=== PATIENT | male | born 1990 | race Caucasian/White ===

== ENCOUNTER 2025-03-05 22:55 | Emergency (ER) | payer SELFPAY ==
[2025-03-05 23:02] VITALS: BP 147/103; PULSE 105; RESP 16; TEMP 36.3; O2SAT 100
--- OUTSIDE RECORDS SUMMARY | 2025-03-06 07:26 | XMS_ITS | Patient Health Record ---
Author Organization [facility] Address [address] [place] [address] Care Team Providers Care Brick Mason Name Role Phone Grady Sheehan Primary Care Provider [phone] Shaun Lyles Unavailable [phone] Adam Smith Unavailable [phone] Elizabeth Sadler Unavailable Eileen Castaneda Unavailable [phone] Iva No Unavailable [phone] Allergies Allergen (clinical drug ingredient) Drug/Non Drug Allergy documented on EMR Reaction Allergy Type Onset Date Status Penicillin Unknown Drug Allergy Active Results Component Value Reference Range Notes 12 Panel Urine Drug Screen Reviewed date:11/19/2024 02:13:55 PM Interpretation: Performing Lab: Notes/Report: THC neg BRENDA neg MOP (OPI) neg AMP neg MET neg BAR neg BZO neg MDMA neg MTD neg OXY neg PCP neg BUP POS 12 Panel Urine Drug Screen Reviewed date:01/04/2025 09:38:34 AM Interpretation: Performing Lab: Notes/Report: THC POS BRENDA neg MOP (OPI) neg AMP neg MET neg BAR neg BZO neg MDMA neg MTD neg OXY neg PCP neg BUP POS Medication Assisted Treatmen t (MAT) Buprenorphine, Norbuprenorphine, and Naloxone MS Confirmation, Urine Reviewed date:11/25/2024 04:15:22 PM Interpretation: Performing Lab:[facility], [address] [facility], Phone - [phone], Director - Abdirashid Notes/Report: Creatinine 197 REFERENCE RANGE : Ref Range>=20 BUPRENORPHINE ++POSITIVE++ Buprenorphine 342 Norbuprenorphine 449 N/B Ratio 1.31 >=0.3 OPIATE ANTAGONIST ++POSITIVE++ Naloxone >508 Testing Threshold: buprenorphine, 1.0 ng/mL norbuprenorphine, 5.0 ng/mL naloxone, 10 ng/mL This test was developed and its performance characteristics determined by [facility]. It has not been cleared or approved by the Food and Drug Administration. 12 Panel Urine Drug Screen Reviewed date:10/11/2024 09:21:39 AM Interpretation: Performing Lab: Notes/Report: THC neg BRENDA neg MOP (OPI) neg AMP neg MET neg BAR neg BZO neg MDMA neg MTD neg OXY neg PCP neg BUP POS Reason For Referral No Information Medications Medication SIG (Take, Route, Frequency, Duration) Notes Start Date End Date Status Buprenorphine HCl-Naloxone HCl 8-2 MG 1 tablet under the tongue and allow to dissolve Sublingual three times a day for 15 days Please use funds today if high out of pocket cost 01/04/2025 Active Sublocade 300 MG/1.5ML 300 mg Subcutaneo us every 28 days 10/11/2024 Active Wellbutrin XL 300 MG 1 tablet in the morning Orally Once a day Active Wellbutrin XL 150 MG 1 tablet in the morning Orally Once a day Active traZODone HCl 100 MG 2 tablet at bedtime Orally Once a day Active Prazosin HCl 5 MG 1 capsule at bedtime Orally Once a day Active Social History Tobacco Use: Social History Observation Description Date Details (start date - stop date) Current Smoker NA - NA Sex Assigned At : Social History Observation Description Sex Assigned At Male Tobacco Control (Standard) Question Answer Notes Tobacco use: Current smoker Problems Problem Type SNOMED Code ICD Code Onset Dates Problem Status W/U Status Risk Notes Problem Tobacco user (433251505) Nicotine dependence, unspecified, uncomplicated (F17.200) Active confirmed Problem 010490011 Morbid obesity (E66.01) Active confirmed Problem Opioid use disorder (4558219249) Opioid use disorder (F11.99) Active confirmed Problem Tobacco user (795898076) Nicotine dependence with current use (F17.200) Active confirmed Vital Signs Heart Rate 79 /min 01/04/2025 Temperature 98.0 degrees Fahrenheit 11/19/2024 Respiratory Rate 16 /min 01/04/2025 Oximetry 98 % 01/04/2025 Blood pressure diastolic 80 mm Hg 01/04/2025 Height 69 in 01/04/2025 Blood pressure systolic 132 mm Hg 01/04/2025 Weight 303 lb 4 oz lbs 01/04/2025 BMI 44.78 kg/m2 01/04/2025 Encounters Encounter Location Date Provider Diagnosis [facility] [address], [place] [address] 10/11/2024 Elizabeth Sadler Opioid use disorder F11.99 and Nicotine dependence with current use F17.[address] [place] [address] 11/19/2024 Shaun Rafal Opioid use disorder F11.99 ; Morbid obesity E66.01 ; Nutritional counseling Z71.3 and Nicotine dependence, unspecified, uncomplicated F17.[address] [place] [address] 01/04/2025 Eileen Castaneda Opioid use disorder F11.[address] [place] [address] 10/11/2024 Grady Sheehan Opioid use disorder F11.[address] [place] [address] 01/05/2025 Grady Sheehan Assessments Encounter Date Diagnosis (ICD Code) Assessment Notes Treatment Notes Treatment Clinical Notes Section Notes 10/11/2024 Opioid use disorder (ICD-10 - F11.99) 10/11/2024 Nicotine dependence with current use (ICD-10 - F17.200) 10/11/2024 Opioid use disorder (ICD-10 - F11.99) 11/19/2024 Morbid obesity (ICD-10 - E66.01) 11/19/2024 Opioid use disorder (ICD-10 - F11.99) 01/04/2025 Opioid use disorder (ICD-10 - F11.99) *Unable to receive Sublocade today due to insurance issues. Sending 2 weeks of Suboxone (tablets preferred). Return to clinic if insurance issues resolved and able to receive Sublocade, or if continuation of tablets is needed. Call office if any questions or concerns. 11/19/2024 Nutritional counseling (ICD-10 - Z71.3) 11/19/2024 Nicotine dependence, unspecified, uncomplicated (ICD-10 - F17.200) 10/11/2024 Other Patient agrees to take medication as prescribed. Discussed medication side effects, adverse effects, risks, benefits, as well as interactions. Encouraged non-use of opioids. Encouraged participation in recovery groups. Patient may contact office with questions or concerns. 11/19/2024 Other Potential side effects of buprenorphine discussed, as well as taking buprenorphine as prescribed. Dangers of using other controlled substances (prescribed or illegal/including benzodiazepines) with buprenorphine discussed. Patient understands taking other narcotics with buprenorphine could lead to respiratory distress and even . Patient understands that ALL treating providers/physician s should be informed of buprenorphine use as part of a Medication Assisted Treatment program 01/04/2025 Other Patient agrees to take medication as prescribed. Discussed medication side effects, adverse effects, risks, benefits, as well as interactions. Encouraged non-use of opioids and other illicit substances. Has naloxone. Discontinuing buprenorphine increases the risk of overdose upon return to illicit opioid use. Use of alcohol or benzodiazepines with buprenorphine increases the risk of overdose and . Education provided about safe storage of medications. Encouraged participation in recovery groups/counseling services. Contact office with questions or concerns. Plan Of Treatment No Information Insurance Providers Payer Name Payer Address Payer Phone Subscriber Number Group Number Insured Name Patient Relationship to Insured Coverage Start Date Coverage End Date [place] [id number] [id number] [phone] [id number] Fredis Chopra Self - patient is the insured 5 Medications Administered Medication Instructions Date of Administration Dosage Notes Sublocade 10/11/2024 300 mg Sublocade 11/19/2024 300 mg Tg GONZALES, Malaika Matson 11/19/2024 02:32:03 PM HERB DOCTOR >pt tolerated well with minimal discomfort observed or reported. Medical (General) History Surgical History Surgery Date(Month/Year) Gallbladder Removal 2007
--- OUTSIDE RECORDS SUMMARY | 2025-03-06 07:26 | XMS_ITS ---
Author Organization [facility] Address [address] [place] [address] Care Team Providers Care Bullet Slugs Inspector Name Role Phone Grady Sheehan Primary Care Provider [phone] Eileen Castaneda Unavailable [phone] Allergies Allergen (clinical drug ingredient) Drug/Non Drug Allergy documented on EMR Reaction Allergy Type Onset Date Status Penicillin Unknown Drug Allergy Active Results Component Value Reference Range Notes 12 Panel Urine Drug Screen Reviewed date:01/04/2025 09:38:34 AM Interpretation: Performing Lab: Notes/Report: THC POS BRENDA neg MOP (OPI) neg AMP neg MET neg BAR neg BZO neg MDMA neg MTD neg OXY neg PCP neg BUP POS REASON FOR VISIT Walk-In Medications Medication SIG (Take, Route, Frequency, Duration) Notes Start Date End Date Status Sublocade 300 MG/1.5ML 300 mg Subcutaneo us every 28 days 10/11/2024 Active traZODone HCl 100 MG 2 tablet at bedtime Orally Once a day Active Buprenorphine HCl-Naloxone HCl 8-2 MG 1 tablet under the tongue and allow to dissolve Sublingual three times a day for 15 days Please use funds today if high out of pocket cost 01/04/2025 Active Wellbutrin XL 300 MG 1 tablet in the morning Orally Once a day Active Wellbutrin XL 150 MG 1 tablet in the morning Orally Once a day Active Prazosin HCl 5 MG 1 capsule at bedtime Orally Once a day Active Social History Tobacco Use: Social History Observation Description Date Details (start date - stop date) Current Smoker NA - NA Sex Assigned At : Social History Observation Description Sex Assigned At Male Tobacco Control (Standard) Question Answer Notes Tobacco use: Current smoker Vital Signs Height 69 in 01/04/2025 Respiratory Rate 16 /min 01/04/2025 Weight 303 lb 4 oz lbs 01/04/2025 BMI 44.78 kg/m2 01/04/2025 Oximetry 98 % 01/04/2025 Heart Rate 79 /min 01/04/2025 Blood pressure systolic 132 mm Hg 01/04/20 25 Blood pressure diastolic 80 mm Hg 025 Encounters Encounter Location Date Provider Diagnosis [address] [place] [address] 01/04/2025 Eileen Castaneda Opioid use disorder F11.99 Assessments Encounter Date Diagnosis (ICD Code) Assessment Notes Treatment Notes Treatment Clinical Notes Section Notes 01/04/2025 Opioid use disorder (ICD-10 - F11.99) *Unable to receive Sublocade today due to insurance issues. Sending 2 weeks of Suboxone (tablets preferred). Return to clinic if insurance issues resolved and able to receive Sublocade, or if continuation of tablets is needed. Call office if any questions or concerns. 01/04/2025 Other Patient agrees to take medication [...] with questions or concerns. Plan Of Treatment Medication Medication Name Sig Start Date Stop Date Notes Sublocade 300 MG/1.5ML 300 mg Subcutaneo us every 28 days 10/11/2024 Buprenorphine HCl-Naloxone HCl 8-2 MG 1 tablet under the tongue and allow to dissolve Sublingual three times a day for 15 days 01/04/2025 Please use funds today if high out of pocket cost Treatment Notes Assessment Notes Opioid use disorder *Unable to receive Sublocade today due to insurance issues. Sending 2 weeks of Suboxone (tablets preferred). Return to clinic if insurance issues resolved and able to receive Sublocade, or if continuation of tablets is needed. Call office if any questions or concerns. Other Patient agrees to take medication as [...] services. Contact office with questions or concerns. Next Appt Details Follow Up: 2 Weeks, Reason: MAR f/u Progress Notes * Fredis CHOPRADOB:1990 (34 yo M)Acc No.[id number]:01/04/2025 Patient: Fredis VILLAFUERTE Provider: Artis Castaneda, MSN, SALES REPRESENTATIVE GROCERIES, PMHNP-BC :1990 A ge:34 Y S ex:Male Date:01/04/2025 Address:[address] [place] [address] Pcp:Grady Sheehan Check In:09:29 AM CUSTOMER RELATIONS CONSULTANT Subjective: * Chief Complaints: * W alk-In * HPI: I nterim History: Emergency room visit N o. W as hospitalized N o.? D epression Screening: PHQ-9 L ittle interest or pleasure in doing things N ot at all, F eeling down, depressed, or hopeless N ot at all, T rouble falling or staying asleep, or sleeping too much N ot at all, F eeling tired or having little energy N ot at all, P oor appetite or overeating N ot at all, F eeling bad about yourself or that you are a failure, or have let yourself or your family down N ot at all, T rouble concentrating on things, such as reading the newspaper or watching television N ot at all, M oving or speaking so slowly that other people could have noticed; or the opposite, being so fidgety or restless that you have been moving around a lot more than usual N ot at all, T houghts that you would be better off or of hurting yourself in some way N ot at all, T otal Score 0 . C SSRS Interpretation and Follow Up Plan: CSSRS Interpretation and Follow Up Plan C SSRS Screen documented using SF Y es, R isk Disposition from SF L ow - No Follow Up Plan Required, F ollow Up Plan N o Follow Up Plan required at this time.. S creening: [place] Suicide Severity Rating Scale (LF) 1 . Wish to be : Have you wished you were or wished you could go to sleep and not wake up? N o, 2 . Suicidal Thoughts: Have you actually had any thoughts of killing yourself? N o, 6 . Suicide Behaviour: Have you ever done anything,started to do anything, or prepared to end your life? N o, I nterpretation: L ow Risk. P reventative Health and Wellness follow-up: Action Plans for Clinical Quality Measures: H IV Screening:?Not addressed during this visit. See notes for details.. . M AR follow-up: MAR walk-in, overdue for 4 week follow-up, sublocade injection. Working 70+ hours, often overnights. Issues getting to clinic. D id not realize he was overdue until he started not feeling well. No issues with previous injection site. No cravings. Reports Sublocade is a miracle . Holding a steady job, gaining custody of his children, lives in [facility]. Last opioid use 6 months ago. Attends meetings 5 days a week and jew every Friday. Medication Monitoring and Risk Mitigation U p-to-date on [facility] recommended lab testing? O ther (see notes): done in rehab, records requested, P rescribed a buprenorphine product? Y es, H as patient had a buprenorphine and metabolite lab ordered/collected? N o Sublocade, P rescription Drug Monitoring Program Review Y es. No concerns at this time., P kashif to address any concerns identified: N o concerns identified. Will continue treatment plan as is.. C ravings, Setbacks, Substance use, and Stressors C ravings since last visit: N o. Patient denies cravings since last visit., S etbacks since last visit? No, patient denies setbacks since last visit., M isuse of substances since last visit: N o, patient denies., S tressors Y es, patient admits to stressors. See notes. work. W ithdrawal and Intoxication Symptoms I ntoxication Symptoms: N o signs of intoxication are present during visit., W ithdrawal Symptoms: N o withdrawal signs are present during visit.. Mental Health, Support System, and Social Determinants M ental Health Status S table.,?Support Systems Include: R ecovery support peer., Personal support system (see notes)., C ourt System Involvement? 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 R ecommended Wellness and Prevention Follow-up R ecommended Wellness and Prevention reviewed: R ecommended Wellness and Prevention not reviewed during this visit (see notes):. O ther concerns: O ther Concerns? N o., N arcan need N o. Patient already has Narcan..? * ROS: B asic ROS: Denies S ubstance Abuse. * Medical History: * Surgical History: G allbladder Removal 2007 * Hospitalization/Major Diagno stic Procedure: D enies Past Hospitalization * Family History: F ather: alive. M other: . 2 brother(s) , 2 sister(s) - healthy. 1 son(s) , 1 daughter(s) - healthy. . * Social History: P rimary Social History: L iving Arrangement L iving Arrangement: D ependent Living, L iving with: O ther: [facility], I s this a supportive environment? Y es. A lcohol Use A lcohol Use Frequency: M onthly or less. I llicit Substance Usage I llicit Substance Usage: Y es, S ubstance Used: C annabis, Cocaine, Heroin, Methamphetamine, I nterested in quitting: Y es. 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 T obacco Use: T obacco Control (Standard) T obacco use: C urrent smoker. M iscellaneous: M ethod of learning P referred method of learning: R neto. * Medications: T akingPrazosin HCl 5 MG Capsule 1 capsule at bedtime Orally Once a day traZODone HCl 100 MG Tablet 2 tablet at bedtime Orally Once a day Sublocade 300 MG/1.5ML Solution Prefilled Syringe 300 mg Subcutaneous every 28 days Wellbutrin XL 150 MG Tablet Extended Release 24 Hour 1 tablet in the morning Orally Once a day Wellbutrin XL 300 MG Tablet Extended Release 24 Hour 1 tablet in the morning Orally Once a day Medication List reviewed and reconciled with the patientTaking Prazosin HCl 5 MG Capsule 1 capsule at bedtime Orally Once a day Taking traZODone HCl 100 MG Tablet 2 tablet at bedtime Orally Once a day Taking Sublocade 300 MG/1.5ML Solution Prefilled Syringe 300 mg Subcutaneous every 28 days Taking Wellbutrin XL 150 MG Tablet Extended Release 24 Hour 1 tablet in the morning Orally Once a day Taking Wellbutrin XL 300 MG Tablet Extended Release 24 Hour 1 tablet in the morning Orally Once a day Medication List reviewed and reconciled with the patient * Allergies: P enicillinno[Allergies Verified] Objective: * Vitals: I nitials: cv, Wt:303 lb 4 oz, Ht: 69, BMI:44.78, BP:132/80, HR:79, Oxygen sat %:98, RR:16, Pain scale:0. * Examination: A STAS Physical Assessment: Intoxication and Withdrawal signs I ntoxication signs N o signs of intoxication are present during examination.Withdrawal Signs N o withdrawal signs are present during examination.. G eneral Examination: GENERAL APPEARANCE: a lert, pleasant, in no acute distress.? PSYCH: a lert, oriented x4, speech clear, good eye contact.? Assessment: * Assessment: 1. O pioid use disorder - F11.99 (Primary) Plan: * Treatment: Value Reference Range T HC POS * C OC neg * M OP (OPI) neg * A MP neg * M ET neg * B AR neg * B ZO neg * M DMA neg * M TD neg * O XY neg * P CP neg * B UP POS Notes: *Unable to receive Sublocade today due to insurance issues. Sending 2 weeks of Suboxone (tablets preferred). Return to clinic if insurance issues resolved and able to receive Sublocade, or if continuation of tablets is needed. Call office if any questions or concerns.??2.?Others? Notes:Patient agrees to take medication as prescribed. Discussedmedication side effects, adverse effects,risks, benefits, as well asinteractions. Encouraged non-use of opioids and other illicit substances. Hasnaloxone. Discontinuing buprenorphine increases the risk of overdose uponreturn to illicit opioid use. Use of alcohol or benzodiazepines withbuprenorphine increases the risk of overdose anddeath. Education providedabout safe storage of medications. Encouragedparticipation in recovery groups/counseling services. Contact office withquestions or concerns. ?? * Recommended Wellness and Pre vention Guidelines: * S tatus A lert L ast Done N ext Due A ction Taken N ONCOMPLIANT A lcohol use screening - 0 01/04/2025 - N ONCOMPLIANT C holesterol screen (genl pop) - 0 01/04/2025 - N ONCOMPLIANT H IV screening - 0 01/04/2025 - N ONCOMPLIANT I nfluenza vaccine (high risk) - 0 01/04/2025 - * Procedure Codes: 9 9000 SPECIMEN [id number] BODY MASS INDEX [id number] MEDICAL NUTRITION, INDIV, [id number] BEHAV CHNG SMOKING 3-10 MIN * Preventive Medicine: Counseling: C are goal follow-up plan: B NE management provided Y esKarthikeyan Normal BMI Follow-up L ifestyle education regarding diet. S MOKING: P atient counselled on the dangers of tobacco use and urged to quit. . . * Follow Up: 2 Weeks (Reason: JAN f/u) * * OMER RELATIONS CONSULTANT Sign off status: Completed true * Provider: Artis Castaneda, MSN, SALES REPRESENTATIVE GROCERIES, PMHNP-BC Date: 01/04/2025 Generated for Printing/Faxing/eTransmitting on: 0 03/06/2025 07:26 AM CDT History and Physical Notes * HPI (History of Present Illness) Category Sub-Category Detail Notes Category Not es Interim History Was hospitalized No Emergency room visit No Depression Screening PHQ-9 Little inte rest or pleasure in doing things: Not at all Feeling down, depressed, or hopeless: No t at all Trouble falling or staying asleep, or sl eeping too much: Not at all Feeling tired or having little energy: N ot at all Poor appetite or overeating: Not at all Feeling bad about yourself o r that you are a failure, or have let yourself or your family down: Not at all Trouble concentrating on thi ngs, such as reading the newspaper or watching television: Not at all Moving or speaking so slowly that other people could have noticed; or the opposite, being so fidgety or restless that you have been moving around a lot more than usual: Not at all Thoughts that you would be b fco off or of hurting yourself in some way: Not at all Total Score: 0 Screening [place] Suicide Sev erity Rating Scale (LF) 1. Wish to be : Have you wished you were or wished you could go to sleep and not wake up?: No 2. Suicidal Thoughts: Have you actually had any thoughts of killing yourself?: No 6. Suicide Behavior Question: Have you ever done anything,started to do anything, or prepared to end your life?: No Interpretation:: Low Risk MAR follow-up Medication Monitorin g and Risk Mitigation Up-to-date on ASAM recommended lab testing?: Other (see notes): done in rehab, records requested Prescribed a buprenorphine product?: Yes Has patient had a buprenorphine and metabolite lab ordered/collected?: No Sublocade Prescription Drug Monitoring Program Rev iew: Yes. No concerns at this time. Plan to address any concerns identified:: No concerns identified. Will continue treatment plan as is. Cravings, Setbacks, Substanc e use, and Stressors Cravings since last visit:: No. Patient denies cravings since last visit. Setbacks since last visit?: No, patient denies setbacks since last visit. Misuse of substances since last visit:: No, patient denies. Stressors: Yes, patient admits to stress ors. See notes. work Withdrawal and Intoxication Symptoms Int oxication Symptoms:: No signs of intoxication are present during visit. Withdrawal Symptoms:: No withdrawal sign s are present during visit. Mental Health, Support Syste m, and Social Determinants Mental Health Status: Stable. Support Systems Include:: Re covery support peer., Personal support system (see notes). Court System Involvement?: No Housing Stability:: Stable and safe hous ing. 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 Referrals needed:: No referrals needed a t this time. Recommended Wellness and Pre vention Follow-up Recommended Wellness and Prevention reviewed:: Recommended Wellness and Prevention not reviewed during this visit (see notes): Other concerns: Other Concerns?: No. Narcan need: No. Patient already has Elliott can. Preventative Health and Wellness follow-up Action Plans for Clinical Quality Measures: HIV Screening:: Not addressed during this visit. See notes for details. . CSSRS Interpretation and Follow Up Plan CSSRS Interpretation and Follow Up Plan CSSRS Screen documented using SF: Yes Risk Disposition from SF: Low - No Follo w Up Plan Required Follow Up Plan: No Follow Up Plan requir ed at this time. Examination Category Sub-Category Detail Notes Category Not es General Examination GENERAL APPEARANCE: alert, p leasant, in no acute distress PSYCH: alert, oriented x4, speech clear, good eye contact ASAM Physical Assessment Intoxication an d Withdrawal signs Intoxication signs: No signs of intoxication are present during examination. Withdrawal Signs: No withdrawal signs ar e present during examination.
--- OUTSIDE RECORDS SUMMARY | 2025-03-06 07:26 | XMS_ITS ---
Author Organization [facility] Address [address] [place] [address] Care Team Providers Care Hris Administrator Name Role Phone Grady Sheehan Primary Care Provider Iva No Unavailable [phone] REASON FOR VISIT New Patient Psych Eval Medications Medication SIG (Take, Route, Frequency, Duration) [...] Orally Once a day Active Social History Sex Assigned At : Social History Observation Description Sex Assigned At Male Encounters Encounter Location Date Provider Diagnosis [address] [address] 01/05/2025 Iva No Plan Of Treatment No Information Progress Notes * Fredis CHAPPELLDOB:1990 (34 yo M)Acc No.[id number]:01/05/2025 UNLOCKED PROGRESS NOTE Patient: Chu VILLAFUERTEua Provider: QIAN Tran :1990 A ge:34 Y S ex:Male Date:01/05/2025 Address:[address] [place] [address] Pcp:Grady Sheehan Subjective: * Chief Complaints: * 1 . New Patient Psych Eval. * Medical History: * Medications: T aking Sublocade 300 MG/1.5ML Solution Prefilled Syringe 300 mg Subcutaneous every 28 days , Taking Buprenorphine HCl-Naloxone HCl 8-2 MG Tablet Sublingual 1 tablet under the tongue and allow to dissolve Sublingual three times a day , Notes to Pharmacist: Please use funds today if high out of pocket cost, Taking Prazosin HCl 5 MG Capsule 1 capsule at bedtime Orally Once a day , Taking traZODone HCl 100 MG Tablet 2 tablet at bedtime Orally Once a day , Taking Wellbutrin XL 150 MG Tablet Extended Release 24 Hour 1 tablet in the morning Orally Once a day , Taking Wellbutrin XL 300 MG Tablet Extended Release 24 Hour 1 tablet in the morning Orally Once a day Objective: * Vitals: Assessment: Plan: * Treatment: * * Electronic signature of Yara No on 03/06/2025 at 07:26 AM CDT Sign off status: Pending * Provider: QIAN Tran Date: 0 01/05/2025 Generated for Sharyn victoria/Kenzie/Mingo on: 0 03/06/2025 07:26 AM CDT
--- OUTSIDE RECORDS SUMMARY | 2025-03-06 07:26 | XMS_ITS ---
Author Organization [facility] Address [address] [place] [address] Care Team Providers Care Frame Bander Name Role Phone Grady Sheehan Primary Care Provider [phone] Social History Sex Assigned At : Social History Observation Description Sex Assigned At Male Encounters Encounter Location Date Provider Diagnosis [address] [address] 01/05/2025 Grady Sheehan Plan Of Treatment No Information Progress Notes * Fredis CHOPRADOB:1990 (34 yo M)Acc No.[id number]:01/05/2025 Patient: Litzy VILLAFUERTEshua :1990 A ge:34 Y S ex:Male Address:[address] [place] [address], [id number] * true * Date: Generated for Sharyn victoria/Kenzie/eTransmitting on: 0 03/06/2025 07:26 AM CDT
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
== END 2025-03-06 08:08 | disposition home or self-care (01) ==
PROVIDERS: Emergency Provider Emergency Medicine
DX: L03.317 Cellulitis of buttock (principal); S30.0XXA Contusion of lower back and pelvis, initial encounter; Z90.49 Acquired absence of other specified parts of digestive tract; V00.841A Fall from standing electric scooter, initial encounter
CPT/HCPCS: 99283